=== PATIENT | female | born 1990 | race African-American/Black ===

== ENCOUNTER 2017-08-28 14:32 | Observation (INO) ==
[2017-08-28] MEDS ORDERED: Sod Chloride 0.9% Inj 1,000 ML IV.SIG ONE (19:48)
--- NOTE | 2017-08-28 19:56 | ED ---
HPI General Chief complaint: Recheck/Abnormal Lab/Rx Stated complaint: High blood sugar Time Seen by Provider: 08/28/17 19:36 History of Present Illness HPI narrative: This is a 27-year-old who is 12 weeks estimated gestational age. She has a history of insulin-dependent diabetes. She was sent here by her MUSICAL INSTRUMENT MAKER OR REPAIRER for evaluation of elevated blood sugar. She reports that she had a routine appointment today with Dr. Babin at [facility]. He told her to come here to be admitted for valuation of high blood sugar. She reports that she is currently on a 40 units regular insulin before meals regimen which she has been on for the past few years. She reports that typically in the mornings since she has been her blood sugars been running 200s fasting and after meals it is been in the 300s. Prior to her blood sugar was typically in the high 100s fasting and in the mid 200s after meals. She reports that she moved here from [place] 1.5 years ago and is in the process of getting an appointment with an handkerchief cutter, she has her first appointment in 1 week. She is currently asymptomatic. Denies any blurred vision, headache, polyuria, polydipsia, polyphagia, nausea or vomiting, abdominal pain. Related Data Home Medications Medication Instructions Recorded Confirmed insulin NPH and regular human 40 unit SUB-Q TID 08/28/17 08/28/17 Allergies Allergy/AdvReac Type Severity Reaction Status Date / Time No Known Allergies Allergy Uncoded 03/20/16 13:12 Review of Systems Except as stated in HPI: all other systems reviewed are negative PMFSH Medical History Medical History Diabetes (Acute) Social History Social History Substance History: No History of Abuse Second Hand Smoke Exposure: No Smoking Status: Never smoker How Often Do You Have a Drink Containing Alcohol: Never Recent Travel in [facility] within the Last 8 Weeks: No Recent Out of Country Travel within the Last 8 Weeks: No Exam Narrative Exam Narrative: GENERAL: Pleasant well-developed well-nourished female in no acute distress SKIN: Warm and dry. HEAD: Atraumatic. Normocephalic. EYES: Pupils equal and round. No scleral icterus. No injection or drainage. ENT: No nasal bleeding or discharge. Mucous membranes pink and moist. NECK: Trachea midline. No JVD. CARDIOVASCULAR: Regular rate and rhythm. No murmur appreciated. RESPIRATORY: No accessory muscle use. Clear to auscultation. Breath sounds equal bilaterally. GASTROINTESTINAL: Abdomen soft, non-tender, nondistended. Hepatic and splenic margins not palpable. MUSCULOSKELETAL: No obvious deformities. No clubbing. No cyanosis. No edema. NEUROLOGICAL: Awake and alert. No obvious cranial nerve deficits. Motor grossly within normal limits. Normal speech. Course Initial Documented Vital Signs Pulse Rate 98 H 08/28/17 20:16 Respiratory Rate 18 08/28/17 20:16 Blood Pressure 130/68 08/28/17 20:16 Pulse Oximetry 99 08/28/17 20:16 Last Documented Vital Signs Pulse Rate 98 H 08/28/17 20:16 Respiratory Rate 18 08/28/17 20:16 Blood Pressure 130/68 08/28/17 20:16 Pulse Oximetry 99 08/28/17 20:16 Medical Decision Making MDM Narrative Medical decision making narrative: This is a 27-year-old female with history of diabetes who presents after being sent by her MUSICAL INSTRUMENT MAKER OR REPAIRER for hyperglycemia. Lab work was obtained revealing a blood sugar of 286, otherwise unremarkable, the patient is not in DKA. I discussed with the on-call MUSICAL INSTRUMENT MAKER OR REPAIRER Dr. Aleman who wants the patient admitted to the hospitalist service for management of her diabetes. She will be admitted. Differential Diagnosis Differential Diagnosis: Hyperglycemia, gestational diabetes, insulin-dependent diabetes, DKA, electrolyte abnormality Lab Data Result diagrams: 08/28/17 20:20 08/28/17 20:20 Lab Results 08/28/17 08/28/17 08/28/17 Range/Units 20:20 20:20 21:42 WBC 8.3 (4.0-11.0) th/mm3 RBC 4.39 (4.00-5.30) mil/mm3 Hgb 12.5 (11.6-15.3) gm/dL Hct 38.0 (35.0-46.0) % MCV 86.5 (80.0-100.0) fL MCH 28.5 (27.0-34.0) pg MCHC 33.0 (32.0-36.0) % RDW 13.4 (11.6-17.2) % Plt Count 273 (150-450) th/mm3 MPV 8.2 (7.0-11.0) fL Neut % (Auto) 63.5 (16.0-70.0) % Lymph % (Auto) 28.6 (9.0-44.0) % Lucas % (Auto) 6.4 (0.0-8.0) % Eos % (Auto) 1.2 (0.0-4.0) % Baso % (Auto) 0.3 (0.0-2.0) % Neut # (Auto) 5.3 (1.8-7.7) th/mm3 Lymph # (Auto) 2.4 (1.0-4.8) th/mm3 Lucas # (Auto) 0.5 (0.0-0.9) th/mm3 Eos # (Auto) 0.1 (0.0-0.4) th/mm3 Baso # (Auto) 0.0 (0.0-0.2) th/mm3 WBC Differential . Differential Comment Auto diff final Sodium 134 L (136-145) meq/L Potassium 3.9 (3.5-5.1) meq/L Chloride 99 (98-107) meq/L Carbon Dioxide 24.5 (21.0-32.0) meq/L Anion Gap 11 (5-15) meq/L BUN 9 (7-18) mg/dL Creatinine 0.55 (0.50-1.00) mg/dL Estimated GFR Greater than 89 (>89) mL/min POC Glucose 218 H (68-110) mg/dl Random Glucose 286 H (74-106) mg/dL Calcium 9.0 (8.5-10.1) mg/dL Total Bilirubin 0.3 (0.2-1.0) mg/dL AST 18 (15-37) U/L ALT 25 (10-53) U/L Alkaline Phosphatase 43 L (45-117) U/L Total Protein 6.7 (6.4-8.2) g/dL Albumin 2.7 L (3.4-5.0) g/dL Beta-Hydroxybutyric Acd 0.12 (0.00-0.39) mmol/L Discharge Plan Discharge Disposition Patient Disposition: 30 Still Patient Discharge Details Diagnosis: Gestational hyperglycemia Physicians Team ED Provider: Alfredo Cardozo ED Midlevel Provider: Edgar Jha Primary Care Provider: Primary Care Stefani Soriano Attending Provider: Melanie Liao Discharge Interventions Interventions: Vital Signs Last Done: 08/28/17 20:16 Status ED Status: Admitted Observation Patient
[2017-08-28 20:37] LABS: Baso % (Auto) 0.3 % (0.0-2.0); Eos # (Auto) 0.1 th/mm3 (0.0-0.4); Eos % (Auto) 1.2 % (0.0-4.0); Hemoglobin 12.5 gm/dL (11.6-15.3); Lymph # (Auto) 2.4 th/mm3 (1.0-4.8); Lymph % (Auto) 28.6 % (9.0-44.0); Mean Corpuscular Hemoglobin 28.5 pg (27.0-34.0); Mean Corpuscular Volume 86.5 fL (80.0-100.0); Mean Platelet Volume 8.2 fL (7.0-11.0); Mono # (Auto) 0.5 th/mm3 (0.0-0.9); Mono % (Auto) 6.4 % (0.0-8.0); Neut # (Auto) 5.3 th/mm3 (1.8-7.7); Neut % (Auto) 63.5 % (16.0-70.0); Platelet Count 273 th/mm3 (150-450); Red Blood Count 4.39 mil/mm3 (4.00-5.30); Red Cell Distribution Width 13.4 % (11.6-17.2); White Blood Count 8.3 th/mm3 (4.0-11.0)
[2017-08-28 20:50] LABS: Albumin 2.7 g/dL (3.4-5.0); Anion Gap 11 meq/L (5-15); Aspartate Aminotransferase 18 U/L (15-37); Blood Urea Nitrogen 9 mg/dL (7-18); Carbon Dioxide 24.5 meq/L (21.0-32.0); Chloride 99 meq/L (98-107); Glomerular Filtration Rate Greater Than 89 mL/min (>89); Glucose,Random 286 mg/dL (74-106); Potassium 3.9 meq/L (3.5-5.1); Sodium 134 meq/L (136-145)
[2017-08-28 20:51] LABS: Alanine Aminotransferase 25 U/L (10-53)
[2017-08-28 20:53] LABS: Alkaline Phosphatase 43 U/L (45-117); Beta Hydroxybutyric Acid 0.12 mmol/L (0.00-0.39); Total Protein 6.7 g/dL (6.4-8.2)
[2017-08-28 22:59] LABS: Bacteria,Urine Occasional /hpf; Bilirubin,Urine Negative (Negative); Clarity,Urine Cloudy (Clear); Color,Urine Yellow (Yellw/Straw); Glucose,Urine (UA) 500 or Greater mg/dL (Negative); Leukocyte Esterase,Urine Trace (Negative); Mucus,Urine Few /lpf (Occasional); Nitrite,Urine Negative (Negative); Specific Gravity,Urine 1.028 (1.002-1.035); Squamous Epithelial Cell,Urine 16 /hpf (0-5)
[2017-08-28] MEDS ORDERED: Dextrose 50% in Water 50 ML Vial IV.PUSH PRN (23:21)
[2017-08-28] MEDS ORDERED: Bisacodyl 10 MG Supp RECTAL PRN (23:22)
--- NOTE | 2017-08-28 23:24 | P.HPIM ---
History of Present Illness Primary Care Physician: No Primary Care Physician History of Present Illness: This is a 27-year-old female with a PMH of DM who is currently 12 weeks who was referred to the ER by her RESTUARANT CREW WORKER, Dr. Aponte for admission due to uncontrolled BS. Pt currently without complaints. States she was diagnosed w/ DM as a child, was previously on long-acting insulin and had well- controlled BS until few years ago when she was switched to Regular Insulin 40u tid. States BS has been uncontrolled since then. Denies abdominal pain, nausea , vomiting or fever. On arrival, BP 130/68, HR 98, O2 sat 99% on RA, Afebrile. CBC unremarkable. Chemistry unremarkable except for BS 286. UA positive for UTI. S/p Regular Insulin 10u in ER. Dr. Aleman consulted, recommended pt be admitted for tight glucose control. Per patient she has upcoming appointment next w/ Typewriter Ribbon Winder. - Diagnosis (1) (2) DM (diabetes mellitus) (3) UTI (urinary tract infection) Review of Systems All other systems reviewed negative except as stated in HPI PMFSH - History History Provided By: Patient - Medical History Medical History: Medical History (Last Updated 08/28/17 @ 20:17 by Emperatriz Stewart) Diabetes - Tobacco History Second Hand Smoke Exposure: No Smoking Status: Never smoker - Alcohol History How Often Do You Have a Drink Containing Alcohol: Never - Substance Use History Substance History: No History of Abuse - Travel History Recent Travel in the [place] Within the Last 8 Weeks: No Recent Travel Out of the Country Within the Last 8 Weeks: No - Immunization History Tetanus Immunization: Unsure Hx Influenza Vaccine This Season: No Medications and Allergies Allergies Allergy/AdvReac Type Severity Reaction Status Date / Time No Known Allergies Allergy Uncoded 03/20/16 13:12 Home Medications Medication Instructions Recorded Confirmed Type insulin NPH and regular human 40 unit SUB-Q TID 08/28/17 08/28/17 History Exam Vital signs: Vital Signs 08/28/17 20:16 08/28/17 22:17 Pulse Rate 98 H 100 H Respiratory Rate 18 18 Blood Pressure 130/68 127/58 L Pulse Oximetry 99 100 Intake & Output 08/28/17 08/28/17 08/29/17 06:59 18:59 06:59 Weight 106.594 kg Narrative: PE: GENERAL: Very pleasant young black female in no acute distress. HEENT: PERRLA, EOMI. No scleral icterus or conjunctival pallor. No lid lag or facial droop. CARDIOVASCULAR: Regular rate and rhythm. No obvious murmurs to auscultation. No chest tenderness to palpation. RESPIRATORY: No obvious rhonchi or wheezing. Clear to auscultation. Breath sounds equal bilaterally. GASTROINTESTINAL: Abdomen soft, non-tender, nondistended. BS normal. MUSCULOSKELETAL: Extremities without clubbing, cyanosis, or edema. No obvious deformities. NEUROLOGICAL: Awake, alert and oriented x4. No focal neurologic deficits. Moving both upper and lower extremities spontaneously. Results - Labs CBC & Chem 7: 08/28/17 20:20 08/28/17 20:20 Labs: Short CBC 08/28/17 Range/Units 20:20 WBC 8.3 (4.0-11.0) th/mm3 Hgb 12.5 (11.6-15.3) gm/dL Hct 38.0 (35.0-46.0) % Plt Count 273 (150-450) th/mm3 BMP 08/28/17 20:20 Sodium 134 L Potassium 3.9 Chloride 99 Carbon Dioxide 24.5 BUN 9 Creatinine 0.55 Calcium 9.0 Liver Function 08/28/17 Range/Units 20:20 Total Bilirubin 0.3 (0.2-1.0) mg/dL AST 18 (15-37) U/L ALT 25 (10-53) U/L Alkaline Phosphatase 43 L (45-117) U/L Albumin 2.7 L (3.4-5.0) g/dL Urine 08/28/17 Range/Units 22:12 Urine Color Yellow (Yellw/Straw) Urine Clarity Cloudy H (Clear) Urine pH 6.0 (5.0-8.5) Ur Specific [place] 1.028 (1.002-1.035) Urine Protein Negative (Neg-Trace) mg/dL Urine Glucose (UA) 500 or greater (Negative) mg/dL Caprini VTE Risk Assessment Caprini VTE Risk Assessment: No/Low Risk (score <= 1) Caprini Risk Assessment Model: Point Value = 1 Point Value = 2 Point Value = 3 Point Value = 5 Age 41-60 Minor surgery BMI > 25 kg/m2 Swollen legs Varicose veins or History of unexplained or recurrent spontaneous Oral contraceptives or hormone replacement Sepsis (< 1 month) Serious lung disease, including pneumonia (< 1 month) Abnormal pulmonary function Acute myocardial infarction Congestive heart failure (< 1 month) History of inflammatory bowel disease Medical patient at bed rest Age 61-74 Arthroscopic surgery Major open surgery (> 45 min) Laparoscopic surgery (> 45 min) Malignancy Confined to bed (> 72 hours) Immobilizing plaster cast Central venous access Age >= 75 History of VTE Family history of VTE Factor V Leiden Prothrombin [id number] Lupus anticoagulant Anticardiolipin antibodies Elevated serum homocysteine Heparin-induced thrombocytopenia Other congenital or acquired thrombophilia Stroke (< 1 month) Elective arthroplasty Hip, pelvis, or leg fracture Acute spinal cord injury (< 1 month) Prophylaxis Regimen: Total Risk Factor Score Risk Level Prophylaxis Regimen 0-1 Low Early ambulation 2 Moderate Order ONE of the following: *Sequential Compression Device (SCD) *Heparin 5000 units SQ BID 3-4 Higher Order ONE of the following medications: *Heparin 5000 units SQ TID *Enoxaparin/Lovenox 40 mg SQ daily (WT < 150 kg, CrCl > 30 mL/min) *Enoxaparin/Lovenox 30 mg SQ daily (WT < 150 kg, CrCl > 10-29 mL/min) *Enoxaparin/Lovenox 30 mg SQ BID (WT < 150 kg, CrCl > 30 mL/min) AND/OR *Sequential Compression Device (SCD) 5 or more Highest Order ONE of the following medications: *Heparin 5000 units SQ TID (Preferred with Epidurals) *Enoxaparin/Lovenox 40 mg SQ daily (WT < 150 kg, CrCl > 30 mL/min) *Enoxaparin/Lovenox 30 mg SQ daily (WT < 150 kg, CrCl > 10-29 mL/min) *Enoxaparin/Lovenox 30 mg SQ BID (WT < 150 kg, CrCl > 30 mL/min) AND *Sequential Compression Device (SCD) Assessment and Plan - Assessment (1) Code(s): Z34.90 - Encounter for supervision of normal , unspecified, unspecified trimester Status: Acute (2) DM (diabetes mellitus) Code(s): E11.9 - Type 2 diabetes mellitus without complications Status: Acute (3) UTI (urinary tract infection) Code(s): N39.0 - Urinary tract infection, site not specified Status: Acute - Plan A/P: 1. : 12wks gestation, following w/ Dr. Aponte as outpatient, Dr. Aleman consulted, will follow during hospitalization. 2. DM: Uncontrolled. BS 240's, states BS usually 200-300's despite compliance w/ medications. Encapsulator referred pt for admission due to uncontrolled BS, I spoke w/ Dr. Aleman to inquire about goals for glucose levels, recommends fasting BS 100's and non-fasting 120-150. Will check Hgb A1c, start Levemir 10u hs and Sliding scale. Follow up w/ Typewriter Ribbon Winder as scheduled next . 3. UTI: U/a w/ UTI, likely exacerbating hyperglycemia, start IV Rocephin, IVF for hydration, monitor I/O. 4. DVT Prophylaxis: SCD/Teds 5. Social work for d/c planning as needed. 6. Case discussed w/ ER physician at length, labs/records/imaging reviewed by me.
[2017-08-28] MEDS ORDERED: Insulin Detemir Inj 1,000 UNIT/10 ML Vial SQ SCH (23:30)
[2017-08-28] MEDS: Sod Chloride 0.9% Inj 1,000 ML IV.CONT SCH (23:59)
[2017-08-29] MEDS: Sod Chloride 0.9% Inj 1,000 ML IV.CONT SCH ×3 (07:41→19:44)
[2017-08-29] MEDS ORDERED: Insulin NovoLOG Aspart Correctional Sugar Inj SQ SCH (08:00)
[2017-08-29] MEDS: Senna/Docusate Sodium 8.6/50 MG Tablet PO SCH ×2 (08:48→21:06)
--- NOTE | 2017-08-29 10:21 | P.CONOB ---
History of Present Illness Primary Care Physician: No Primary Care Physician Chief Complaint: hyperglycemia in History of Present Illness: Ms. Almanzar is a 27-year-old at 12 weeks gestation with PMHx of DM and followed by Dr. Aponte at [facility] who presents to [facility] with uncontrolled blood sugar and UTI. The OB hospitalist has been consulted to help provide recommendations for blood sugar management prior to patient establishing with visual merchandising associate next week. There has been no vaginal bleeding, loss of fluid, and patient does not complain of dysuria. Patient's home regimen is 40 units of regular insulin 3 times daily. Overnight her blood sugar has been elevated to 286. Patient's first delivered by due to preeclampsia. Patient states she has had intermittent migraines during this but not today. Patient states she got OB ultrasound last week ordered by Dr. Aponte' s office. Patient smoked prior to , drinks no alcohol, and denies other drugs. He takes calcium and started a vitamin early in but no longer takes that. She denies any allergies. Patient states she has been nauseous in the morning during this . Patient denies chest pains, vomiting, diarrhea, fever, chills, and DVT leg pain. Patient also states she has exertional shortness of breath. Weeks Gestation:: 12 Para: 1 (child is 9 years old) : 2 Review of Systems Constitutional: Denies chills, Denies fever(s), Denies weakness Eyes: Denies change in vision Cardiovascular: Reports shortness of breath with activity, Denies chest pain, Denies shortness of breath Respiratory: Reports shortness of breath with activity, Denies shortness of breath Gastrointestinal: Reports nausea, Denies abdominal pain, Denies cramping, Denies loose stools, Denies vomiting Genitourinary: Denies abnormal vaginal bleeding, Denies painful urination, Denies pelvic pain, Denies vaginal discharge Musculoskeletal: Reports other (some LE edema), Denies back pain Skin/Breast: Denies lesions, Denies rash Neurologic: Reports headache(s) (infrequent), Denies dizziness, Denies other visual disturbances PMFSH - History History Provided By: Patient - Medical History Medical History: Medical History (Last Updated 08/29/17 @ 10:09 by Jaspreet Nunes III, MD, R2) delivery delivered Diabetes - Surgical History Surgical History: Surgical History (Last Updated 08/29/17 @ 10:09 by Jaspreet Nunes III, MD, R2) H/O oral surgery - Family History Family History: Family History (Last Updated 08/29/17 @ 10:10 by Jaspreet Nunes III, MD, R2) Mother Diabetes Father Diabetes Mother Hypertension Father Hypertension - Tobacco History Second Hand Smoke Exposure: No Tobacco Use In Past 30 Days: No Smoking Status: Former smoker (stopped when she became ) - Alcohol History How Often Do You Have a Drink Containing Alcohol: Never - Substance Use History Substance History: No History of Abuse - Travel History Recent Travel in the [place] Within the Last 8 Weeks: No Recent Travel Out of the Country Within the Last 8 Weeks: No - Immunization History Tetanus Immunization: Unsure Hx Influenza Vaccine This Season: No Medications and Allergies Active Medications: Active Medications Acetaminophen (Tylenol) 650 mg PO Q4H PRN PRN Reason: Temp > 100.4 Al Hydroxide/Mg Hydroxide (Milk Of Magnesia Liq) 30 ml PO Q12H PRN PRN Reason: Mild Constipation Bisacodyl (Dulcolax Supp) 10 mg RECTAL DAILY PRN PRN Reason: SEVERE CONSITIPATION Dextrose (D50w Vial) 50 ml IV.PUSH UNSCH PRN PRN Reason: PER HYPOGLYCEMIA PROTOCOL Glucagon (Glucagon Inj) 1 mg OTHER PRN PRN PRN Reason: for Hypoglycemia Protocol Sodium Chloride (Ns Inj) 1,000 mls @ 100 mls/hr IV.CONT .Q10H [facility] Last Admin: 08/29/17 08:34 Dose: Not Given Ceftriaxone Sodium 1,000 mg/ (Sodium Chloride) 100 mls @ 200 mls/hr IV.SIG Q24H [facility] Last Infusion: 08/29/17 01:50 Dose: Infused Insulin Aspart (Novolog Insulin Correctional Sugar Inj) 0 unit SQ ACHS [facility]; Protocol Last Admin: 08/29/17 09:55 Dose: 100 unit Insulin Detemir (Levemir Inj) 10 unit SQ HS [facility] Last Admin: 08/29/17 00:01 Dose: 10 unit Lactulose (Lactulose Liq) 30 ml PO DAILY PRN PRN Reason: SEVERE CONSITIPATION Ondansetron HCl (Zofran Odt) 4 mg PO Q6H PRN PRN Reason: NAUSEA OR VOMITING Senna/Docusate Sodium (Sugar-Colace) 1 tab PO BID [facility] Last Admin: 08/29/17 08:48 Dose: Not Given Sennosides (Senokot) 17.2 mg PO Q12H PRN PRN Reason: Moderate Constipation Allergies Allergy/AdvReac Type Severity Reaction Status Date / Time No Known Allergies Allergy Uncoded 03/20/16 13:12 Home Medications Medication Instructions Recorded Confirmed Type insulin NPH and regular human 40 unit SUB-Q TID 08/28/17 08/28/17 History Exam Vital signs: Vital Signs 08/28/17 20:16 08/28/17 22:17 08/29/17 00:00 Temperature 98.5 F Pulse Rate 98 H 100 H 105 H Respiratory Rate 18 18 22 Blood Pressure 130/68 127/58 L 141/61 H Pulse Oximetry 99 100 97 08/29/17 04:00 08/29/17 07:30 Temperature 98.1 F 98.4 F Pulse Rate 104 H 99 H Respiratory Rate 20 20 Blood Pressure 141/76 H 130/64 Pulse Oximetry 99 98 Intake & Output 08/28/17 08/29/17 08/29/17 18:59 06:59 18:59 Intake Total 1580 / 1580 1000 / 1000 Balance 1580 / 1580 1000 / 1000 Weight 106.594 kg 106.594 kg Intake: IV 1100 / 1100 1000 / 1000 NS Inj 1,000 ML @ 100 mls/hr IV 1000 / 1000 .CONT .Q10H [facility] Rx#:[id number] NS Inj 1,000 ML @ Wide Open IV. 1000 / 1000 SIG BOLUS ONE Rx#:[id number] Rocephin Inj 1,000 MG In NS Inj 100 / 100 100 ML @ 200 mls/hr IV.SIG Q24H [facility] Rx#:[id number] Oral 480 / 480 Other: # Voids 1 Weight On Admission 106.56 kg Narrative: GENERAL: Obese, well-developed patient in NAD. SKIN: Warm and dry. No rashes or lesions. HEAD: Normocephalic and atraumatic. EYES: No scleral icterus. No injection or drainage. ENT: No nasal drainage noted. Mucous membranes pink. Airway patent. NECK: Supple, trachea midline. No JVD. CARDIOVASCULAR: Regular rate and rhythm without murmurs, gallops, or rubs. RESPIRATORY: Breath sounds equal bilaterally. No accessory muscle use. ABDOMEN/GI: Abdomen soft, gravid, non-tender, bowel sounds present, no rebound, no guarding EXTREMITIES: No cyanosis. Trace LE edema on dorsal feet. BACK: Nontender without obvious deformity. No CVA tenderness. NEUROLOGICAL: Awake and alert. Motor and sensory grossly within normal limits. Five out of 5 muscle strength in all muscle groups. Normal speech. Results - Labs CBC & Chem 7: 08/28/17 20:20 08/28/17 20:20 Labs: Laboratory Results - last 24 hr 08/28/17 08/28/17 08/28/17 20:20 20:20 21:42 WBC 8.3 RBC 4.39 Hgb 12.5 Hct 38.0 MCV 86.5 MCH 28.5 MCHC 33.0 RDW 13.4 Plt Count 273 MPV 8.2 Neut % (Auto) 63.5 Lymph % (Auto) 28.6 [place] % (Auto) 6.4 Eos % (Auto) 1.2 Baso % (Auto) 0.3 Neut # (Auto) 5.3 Lymph # (Auto) 2.4 [place] # (Auto) 0.5 Eos # (Auto) 0.1 Baso # (Auto) 0.0 WBC Differential . Differential Comment Auto diff final Sodium 134 L Potassium 3.9 Chloride 99 Carbon Dioxide 24.5 Anion Gap 11 BUN 9 Creatinine 0.55 Estimated GFR Greater than 89 POC Glucose 218 H Random Glucose 286 H Calcium 9.0 Total Bilirubin 0.3 AST 18 ALT 25 Alkaline Phosphatase 43 L Total Protein 6.7 Albumin 2.7 L Beta-Hydroxybutyric Acd 0.12 Urine Color Urine Clarity Urine pH Ur Specific [place] Urine Protein Urine Glucose (UA) Urine Ketones Urine Occult Blood Urine Nitrate Urine Bilirubin Urine Urobilinogen Ur Leukocyte Esterase Urine RBC Urine WBC Ur Squamous Epith Cells Urine Bacteria Urine Mucus Micro UA Comment Urine Culture Comments 08/28/17 08/29/17 22:12 08:44 WBC RBC Hgb Hct MCV MCH MCHC RDW Plt Count MPV Neut % (Auto) Lymph % (Auto) [place] % (Auto) Eos % (Auto) Baso % (Auto) Neut # (Auto) Lymph # (Auto) [place] # (Auto) Eos # (Auto) Baso # (Auto) WBC Differential Differential Comment Sodium Potassium Chloride Carbon Dioxide Anion Gap BUN Creatinine Estimated GFR POC Glucose 260 H Random Glucose Calcium Total Bilirubin AST ALT Alkaline Phosphatase Total Protein Albumin Beta-Hydroxybutyric Acd Urine Color Yellow Urine Clarity Cloudy H Urine pH 6.0 Ur Specific [place] 1.028 Urine Protein Negative Urine Glucose (UA) 500 or greater Urine Ketones Negative Urine Occult Blood Small H Urine Nitrate Negative Urine Bilirubin Negative Urine Urobilinogen 2.0 H Ur Leukocyte Esterase Trace H Urine RBC 5 H Urine WBC 9 H Ur Squamous Epith Cells 16 Urine Bacteria Occasional H Urine Mucus Few H Micro UA Comment Culture indicated Urine Culture Comments Culture indicated Caprini VTE Risk Assessment Caprini VTE Risk Assessment: No/Low Risk (score <= 1) Caprini Risk Assessment Model: Point Value = 1 Point Value = 2 Point Value = 3 Point Value = 5 Age 41-60 Minor surgery BMI > 25 kg/m2 Swollen legs Varicose veins or History of unexplained or recurrent spontaneous Oral contraceptives or hormone replacement Sepsis (< 1 month) Serious lung disease, including pneumonia (< 1 month) Abnormal pulmonary function Acute myocardial infarction Congestive heart failure (< 1 month) History of inflammatory bowel disease Medical patient at bed rest Age 61-74 Arthroscopic surgery Major open surgery (> 45 min) Laparoscopic surgery (> 45 min) Malignancy Confined to bed (> 72 hours) Immobilizing plaster cast Central venous access Age >= 75 History of VTE Family history of VTE Factor V Leiden Prothrombin [id number] Lupus anticoagulant Anticardiolipin antibodies Elevated serum homocysteine Heparin-induced thrombocytopenia Other congenital or acquired thrombophilia Stroke (< 1 month) Elective arthroplasty Hip, pelvis, or leg fracture Acute spinal cord injury (< 1 month) Prophylaxis Regimen: Total Risk Factor Score Risk Level Prophylaxis Regimen 0-1 Low Early ambulation 2 Moderate Order ONE of the following: *Sequential Compression Device (SCD) *Heparin 5000 units SQ BID 3-4 Higher Order ONE of the following medications: *Heparin 5000 units SQ TID *Enoxaparin/Lovenox 40 mg SQ daily (WT < 150 kg, CrCl > 30 mL/min) *Enoxaparin/Lovenox 30 mg SQ daily (WT < 150 kg, CrCl > 10-29 mL/min) *Enoxaparin/Lovenox 30 mg SQ BID (WT < 150 kg, CrCl > 30 mL/min) AND/OR *Sequential Compression Device (SCD) 5 or more Highest Order ONE of the following medications: *Heparin 5000 units SQ TID (Preferred with Epidurals) *Enoxaparin/Lovenox 40 mg SQ daily (WT < 150 kg, CrCl > 30 mL/min) *Enoxaparin/Lovenox 30 mg SQ daily (WT < 150 kg, CrCl > 10-29 mL/min) *Enoxaparin/Lovenox 30 mg SQ BID (WT < 150 kg, CrCl > 30 mL/min) AND *Sequential Compression Device (SCD) Assessment and Plan - Plan 27 YO female at 12 weeks gestation with chronic DM and Hx pre-eclampsia delivered via C/S presents with uncontrolled blood sugar at 286 overnight. Pt's home regimen is regular insulin 40 units TID. PLAN: -Must quickly control blood sugars with goals of FBS <100 and post-prandial BS < 140 -OB US <14 weeks ordered to assess fetus -F/u with visual merchandising associate next week as planned Dispo: FIELD REP signing off JANNIE Aleman
[2017-08-29] MEDS ORDERED: Dextrose 50% in Water 50 ML Vial IV.PUSH PRN (10:26)
[2017-08-29] MEDS: Insulin Detemir Inj 1,000 UNIT/10 ML Vial SQ SCH ×2 (11:17→21:08)
--- NOTE | 2017-08-29 13:36 | P.PNIM ---
Subjective Interval history: Patient says she is feeling well. Denies any chest pain, shortness breath, nausea, vomiting, diarrhea, constipation. Physical Exam Vital signs: Vital Signs 08/28/17 20:16 08/28/17 22:17 08/29/17 00:00 Temperature 98.5 F Pulse Rate 98 H 100 H 105 H Respiratory Rate 18 Blood Pressure 130/68 127/58 L 141/61 H Pulse Oximetry 99 100 97 08/29/17 04:00 08/29/17 07:30 08/29/17 12:00 Temperature 98.1 F 98.4 F 98.9 F Pulse Rate 104 H 99 H 105 H Respiratory Rate 16 Blood Pressure 141/76 H 130/64 164/74 H Pulse Oximetry 99 98 96 Intake & Output 08/28/17 08/29/17 08/29/17 18:59 06:59 18:59 Intake Total 1580 / 1580 1120 / 1120 Balance 1580 / 1580 1120 / 1120 Weight 106.594 kg 106.594 kg Intake: IV 1100 / 1100 1000 / 1000 NS Inj 1,000 ML @ 100 mls/hr IV 1000 / 1000 .CONT .Q10H B[facility]AL Rx#:[id number] NS Inj 1,000 ML @ Wide Open IV. 1000 / 1000 SIG BOLUS ONE Rx#:[id number] Rocephin Inj 1,000 MG In NS Inj 100 / 100 100 ML @ 200 mls/hr IV.SIG Q24H [facility] Rx#:[id number] Oral 480 / 480 120 / 120 Other: # Voids 1 1 Date of Last Bowel Movement 08/29/17 Weight On Admission 106.56 kg Narrative: GENERAL: Patient sitting up in bed. Appears comfortable. SKIN: Warm and dry. HEAD: Normocephalic. EYES: No scleral icterus. No injection or drainage. NECK: Supple, trachea midline. No JVD or lymphadenopathy. CARDIOVASCULAR: Regular rate and rhythm without murmurs, gallops, or rubs. RESPIRATORY: Breath sounds equal bilaterally. No accessory muscle use. GASTROINTESTINAL: Abdomen soft, non-tender, nondistended. MUSCULOSKELETAL: No cyanosis, or edema. BACK: Nontender without obvious deformity. No CVA tenderness. Results - Labs CBC & Chem 7: 08/28/17 20:20 08/28/17 20:20 Laboratory Results - last 24 hr 08/28/17 08/28/17 08/28/17 20:20 20:20 21:42 WBC 8.3 RBC 4.39 Hgb 12.5 Hct 38.0 MCV 86.5 MCH 28.5 MCHC 33.0 RDW 13.4 Plt Count 273 MPV 8.2 Neut % (Auto) 63.5 Lymph % (Auto) 28.6 Ritchie % (Auto) 6.4 Eos % (Auto) 1.2 Baso % (Auto) 0.3 Neut # (Auto) 5.3 Lymph # (Auto) 2.4 Ritchie # (Auto) 0.5 Eos # (Auto) 0.1 Baso # (Auto) 0.0 WBC Differential . Differential Comment Auto diff final Sodium 134 L Potassium 3.9 Chloride 99 Carbon Dioxide 24.5 Anion Gap 11 BUN 9 Creatinine 0.55 Estimated GFR Greater than 89 POC Glucose 218 H Random Glucose 286 H Calcium 9.0 Total Bilirubin 0.3 AST 18 ALT 25 Alkaline Phosphatase 43 L Total Protein 6.7 Albumin 2.7 L Beta-Hydroxybutyric Acd 0.12 Urine Color Urine Clarity Urine pH Ur Specific [place] Urine Protein Urine Glucose (UA) Urine Ketones Urine Occult Blood Urine Nitrate Urine Bilirubin Urine Urobilinogen Ur Leukocyte Esterase Urine RBC Urine WBC Ur Squamous Epith Cells Urine Bacteria Urine Mucus Micro UA Comment Urine Culture Comments 08/28/17 08/29/17 08/29/17 22:12 08:44 12:58 WBC RBC Hgb Hct MCV MCH MCHC RDW Plt Count MPV Neut % (Auto) Lymph % (Auto) Ritchie % (Auto) Eos % (Auto) Baso % (Auto) Neut # (Auto) Lymph # (Auto) Ritchie # (Auto) Eos # (Auto) Baso # (Auto) WBC Differential Differential Comment Sodium Potassium Chloride Carbon Dioxide Anion Gap BUN Creatinine Estimated GFR POC Glucose 260 H 284 H Random Glucose Calcium Total Bilirubin AST ALT Alkaline Phosphatase Total Protein Albumin Beta-Hydroxybutyric Acd Urine Color Yellow Urine Clarity Cloudy H Urine pH 6.0 Ur Specific [place] 1.028 Urine Protein Negative Urine Glucose (UA) 500 or greater Urine Ketones Negative Urine Occult Blood Small H Urine Nitrate Negative Urine Bilirubin Negative Urine Urobilinogen 2.0 H Ur Leukocyte Esterase Trace H Urine RBC 5 H Urine WBC 9 H Ur Squamous Epith Cells 16 Urine Bacteria Occasional H Urine Mucus Few H Micro UA Comment Culture indicated Urine Culture Comments Culture indicated Microbiology 08/28/17 22:12 Clean Catch Urine Urine Culture - Preliminary No growth in 24 hours Assessment and Plan - Assessment (1) Code(s): Z34.90 - Encounter for supervision of normal , unspecified, unspecified trimester Status: Acute (2) DM (diabetes mellitus) Code(s): E11.9 - Type 2 diabetes mellitus without complications Status: Acute (3) UTI (urinary tract infection) Code(s): N39.0 - Urinary tract infection, site not specified Status: Acute - Plan // : 12wks gestation, following w/ Dr. Aponte as outpatient, Dr. Aleman consulted, will follow during hospitalization. = Appreciate gynecology assistance. // DM: Uncontrolled. BS 240's, states BS usually 200-300's despite compliance w/ medications. Thermal Cutter Hand referred pt for admission due to uncontrolled BS, I spoke w/ Dr. Aleman to inquire about goals for glucose levels, recommends fasting BS 100's and non-fasting 120-150. Will check Hgb A1c, start Levemir 10u hs and Sliding scale. Follow up w/ Military Aircraft Designer as scheduled next . = Patient on 40 of regular insulin 3 times a day at home. Increase his sliding scale. Add twice daily Levemir. Continue to monitor. Consult ski patroller. //UTI: U/a w/ UTI, likely exacerbating hyperglycemia, start IV Rocephin, IVF for hydration, monitor I/O. = Follow-up cultures. Discharge Planning: Discharge home tomorrow morning if sugars are stable.
[2017-08-29] MEDS: Insulin NovoLOG Aspart Correctional Sugar Inj SQ SCH ×3 (14:33→21:06)
[2017-08-29 17:15] LABS: Anion Gap 7 meq/L (5-15); Blood Urea Nitrogen 8 mg/dL (7-18); Calcium 8.8 mg/dL (8.5-10.1); Carbon Dioxide 26.3 meq/L (21.0-32.0); Chloride 104 meq/L (98-107); Glomerular Filtration Rate Greater Than 89 mL/min (>89); Glucose,Random 184 mg/dL (74-106); Potassium 3.7 meq/L (3.5-5.1); Sodium 137 meq/L (136-145)
[2017-08-30] MEDS: Sod Chloride 0.9% Inj 1,000 ML IV.CONT SCH ×3 (05:09→23:33)
[2017-08-30] MEDS: Insulin NovoLOG Aspart Correctional Sugar Inj SQ SCH ×4 (08:16→21:10)
[2017-08-30] MEDS: Insulin Detemir Inj 1,000 UNIT/10 ML Vial SQ SCH (08:16)
[2017-08-30] MEDS: Senna/Docusate Sodium 8.6/50 MG Tablet PO SCH ×2 (08:18→21:11)
[2017-08-30] MEDS ORDERED: Insulin Detemir Inj 1,000 UNIT/10 ML Vial SQ ONE (08:25)
[2017-08-30] MEDS ORDERED: Sodium Chlor 0.9% Inj 500 ML IV.SIG ONE (08:27)
--- NOTE | 2017-08-30 09:43 | P.PNIM ---
Subjective Interval history: All right. Denies any chest pain shortness of breath. She does report morning nausea which is typical for her. She has Ritz crackers at bedside which she has been taking to prevent her nausea. Physical Exam Vital signs: Vital Signs 08/29/17 12:00 08/29/17 16:00 08/30/17 00:00 Temperature 98.9 F 97.9 F 98.7 F Pulse Rate 105 H 110 H 106 H Respiratory Rate 16 18 16 Blood Pressure 164/74 H 141/73 H 164/77 H Pulse Oximetry 96 100 08/30/17 04:00 08/30/17 08:00 Temperature 98.7 F 98.1 F Pulse Rate 107 H 104 H Respiratory Rate 16 24 Blood Pressure 129/61 149/70 H Pulse Oximetry 95 99 Intake & Output 08/29/17 08/30/17 08/30/17 18:59 06:59 18:59 Intake Total 1120 / 1120 2100 / 2100 Balance 1120 / 1120 2100 / 2100 Intake: IV 1000 / 1000 2100 / 2100 NS Inj 1,000 ML @ 100 mls/hr IV 1000 / 1000 2000 / 2000 .CONT .Q10H [facility] Rx#:[id number] Rocephin Inj 1,000 MG In NS Inj 100 / 100 100 ML @ 200 mls/hr IV.SIG Q24H [facility] Rx#:[id number] Oral 120 / 120 Other: # Voids 5 1 Date of Last Bowel Movement 08/29/17 Narrative: GENERAL: Patient sitting up in bed. Appears comfortable. Alert and oriented 3. No change on exam. SKIN: Warm and dry. HEAD: Normocephalic. EYES: No scleral icterus. No injection or drainage. NECK: Supple, trachea midline. No JVD. CARDIOVASCULAR: Regular rate and rhythm without murmurs, gallops, or rubs. RESPIRATORY: Breath sounds equal bilaterally. No accessory muscle use. GASTROINTESTINAL: Abdomen soft, non-tender, nondistended. MUSCULOSKELETAL: No cyanosis, or edema. BACK: Nontender without obvious deformity. No CVA tenderness. Results - Labs CBC & Chem 7: 08/28/17 20:20 08/29/17 16:00 Laboratory Results - last 24 hr 08/29/17 08/29/17 08/29/17 12:58 16:00 18:09 Sodium 137 Potassium 3.7 Chloride 104 Carbon Dioxide 26.3 Anion Gap 7 BUN 8 Creatinine 0.83 Estimated GFR Greater than 89 POC Glucose 284 H 226 H Random Glucose 184 H D Calcium 8.8 08/29/17 08/30/17 20:55 08:15 Sodium Potassium Chloride Carbon Dioxide Anion Gap BUN Creatinine Estimated GFR POC Glucose 195 H 243 H Random Glucose Calcium Microbiology 08/28/17 22:12 Clean Catch Urine Urine Culture - Preliminary No growth in 24 hours Assessment and Plan - Assessment (1) Code(s): Z34.90 - Encounter for supervision of normal , unspecified, unspecified trimester Status: Acute (2) DM (diabetes mellitus) Code(s): E11.9 - Type 2 diabetes mellitus without complications Status: Acute (3) UTI (urinary tract infection) Code(s): N39.0 - Urinary tract infection, site not specified Status: Acute - Plan // : 12wks gestation, following w/ Dr. Aponte as outpatient, Dr. Aleman consulted, will follow during hospitalization. = Appreciate gynecology assistance -gynecology is signed off. They want fasting sugars under 100. // DM: Uncontrolled. BS 240's, states BS usually 200-300's despite compliance w/ medications. Steel Post Installer referred pt for admission due to uncontrolled BS, I spoke w/ Dr. Aleman to inquire about goals for glucose levels, recommends fasting BS 100's and non-fasting 120-150. Will check Hgb A1c, start Levemir 10u hs and Sliding scale. Follow up w/ Receiving Supervisor as scheduled next . = Patient on 40 of regular insulin 3 times a day at home. Increase his sliding scale. Add twice daily Levemir. Continue to monitor. Consult natural resources extension educator. = 08/30. Patient found to have Ritz crackers at bedside. Talked with patient about acceptable snacks and foods. Discussed with nurse. Nurse will provide with list of acceptable diabetic food and snacks. //UTI: U/a w/ UTI, likely exacerbating hyperglycemia, start IV Rocephin, IVF for hydration, monitor I/O. = No growth. Discontinue antibiotics. Squamous cells on urinalysis indicating this is a poor sample. Discharge Planning: Discharge home tomorrow morning if sugars are stable.
[2017-08-30 11:13] LABS: Anion Gap 9 meq/L (5-15); Blood Urea Nitrogen 8 mg/dL (7-18); Calcium 8.9 mg/dL (8.5-10.1); Carbon Dioxide 24.3 meq/L (21.0-32.0); Chloride 104 meq/L (98-107); Glomerular Filtration Rate Greater Than 89 mL/min (>89); Glucose,Random 219 mg/dL (74-106); Potassium 3.8 meq/L (3.5-5.1); Sodium 137 meq/L (136-145)
[2017-08-30] MEDS ORDERED: Insulin Detemir Inj 1,000 UNIT/10 ML Vial SQ SCH (21:00)
[2017-08-31] MEDS: Sod Chloride 0.9% Inj 1,000 ML IV.CONT SCH ×3 (07:23→21:01)
[2017-08-31] MEDS: Insulin Detemir Inj 1,000 UNIT/10 ML Vial SQ SCH ×2 (09:25→21:15)
[2017-08-31] MEDS: Insulin NovoLOG Aspart Correctional Sugar Inj SQ SCH ×6 (09:25→21:14)
[2017-08-31] MEDS: Senna/Docusate Sodium 8.6/50 MG Tablet PO SCH ×2 (09:25→21:00)
[2017-08-31] MEDS: Acetaminophen 325 MG Tablet PO PRN ×2 (09:30→18:05)
--- NOTE | 2017-08-31 13:02 | P.PNIM ---
Subjective Interval history: Patient sitting in bed. Appears comfortable. Says she is feeling all right. Denies any chest pain shortness of breath. Denies nausea vomiting. Further discussed with nurse and patient regarding appropriate snacks Physical Exam Vital signs: Vital Signs 08/30/17 15:35 08/30/17 19:37 08/30/17 23:07 Temperature 98.1 F 98.0 F 98.4 F Pulse Rate 104 H 101 H 97 H Respiratory Rate 18 Blood Pressure 151/72 H 148/70 H 144/69 H Pulse Oximetry 99 99 97 08/31/17 03:28 08/31/17 08:11 08/31/17 12:00 Temperature 98.0 F 99.6 F 98.2 F Pulse Rate 105 H 106 H 98 H Respiratory Rate 18 Blood Pressure 126/60 171/81 H 146/77 H Pulse Oximetry 97 97 99 Intake & Output 08/30/17 08/31/17 08/31/17 18:59 06:59 18:59 Intake Total 900 / 900 600 / 600 1300 / 1300 Balance 900 / 900 600 / 600 1300 / 1300 Intake: IV 900 / 900 600 / 600 1300 / 1300 NS Inj 1,000 ML @ 100 mls/hr IV 400 / 400 600 / 600 1300 / 1300 .CONT .Q10H [facility] Rx#:[id number] NS Inj 500 ML @ Wide Open IV. 500 / 500 SIG BOLUS ONE Rx#:[id number] Other: # Voids 2 Date of Last Bowel Movement 08/30/17 08/31/17 # Bowel Movements 1 Narrative: GENERAL: Patient sitting up in bed. Appears comfortable. Alert and oriented 3. No change on exam. SKIN: Warm and dry. HEAD: Normocephalic. EYES: No scleral icterus. No injection or drainage. NECK: Supple, trachea midline. No JVD. CARDIOVASCULAR: Regular rate and rhythm without murmurs, gallops, or rubs. RESPIRATORY: Breath sounds equal bilaterally. No accessory muscle use. GASTROINTESTINAL: Abdomen soft, non-tender, nondistended. MUSCULOSKELETAL: No cyanosis, or edema. BACK: Nontender without obvious deformity. No CVA tenderness. Results - Labs CBC & Chem 7: 08/28/17 20:20 08/30/17 10:10 Laboratory Results - last 24 hr 08/30/17 08/30/17 08/30/17 10:10 13:19 17:56 POC Glucose 272 H 146 H Beta HCG, Quant [id number] H 08/30/17 08/31/17 20:56 09:24 POC Glucose 275 H 183 H Beta HCG, Quant Microbiology 08/28/17 22:12 Clean Catch Urine Urine Culture - Final >100,000 cfu/mL mixed gram positive darren (probable contaminantes) Assessment and Plan - Assessment (1) Code(s): Z34.90 - Encounter for supervision of normal , unspecified, unspecified trimester Status: Acute (2) DM (diabetes mellitus) Code(s): E11.9 - Type 2 diabetes mellitus without complications Status: Acute (3) UTI (urinary tract infection) Code(s): N39.0 - Urinary tract infection, site not specified Status: Acute - Plan // : 12wks gestation, following w/ Dr. Aponte as outpatient, Dr. Aleman consulted, will follow during hospitalization. = Appreciate gynecology assistance -gynecology is signed off. They want fasting sugars under 100. // DM: Uncontrolled. BS 240's, states BS usually 200-300's despite compliance w/ medications. Real Estate Operations Manager referred pt for admission due to uncontrolled BS, I spoke w/ Dr. Aleman to inquire about goals for glucose levels, recommends fasting BS 100's and non-fasting 120-150. Will check Hgb A1c, start Levemir 10u hs and Sliding scale. Follow up w/ Room Designer as scheduled next . = Patient on 40 of regular insulin 3 times a day at home. Increase his sliding scale. Add twice daily Levemir. Continue to monitor. Consult educator senior clinical. = 08/30. Patient found to have Ritz crackers at bedside. Talked with patient about acceptable snacks and foods. Discussed with nurse. Nurse will provide with list of acceptable diabetic food and snacks. = 08/31. Sugar still elevated. Further increase in insulin. Continue to monitor. //Hypertension. Systolic blood pressures in the 170s. Will add labetalol. //no UTI: = No growth. Discontinue antibiotics. Squamous cells on urinalysis indicating this is a poor sample. Discharge Planning: Still with elevated blood sugars. Discharge home tomorrow morning if sugars are stable.
[2017-08-31] MEDS: Labetalol 100 MG Tablet PO SCH ×2 (15:48→21:00)
[2017-09-01] MEDS: Sod Chloride 0.9% Inj 1,000 ML IV.CONT SCH (06:37)
[2017-09-01] MEDS: Insulin NovoLOG Aspart Correctional Sugar Inj SQ SCH ×7 (09:15→20:56)
[2017-09-01] MEDS: Insulin Detemir Inj 1,000 UNIT/10 ML Vial SQ SCH ×2 (09:32→20:56)
[2017-09-01] MEDS: Labetalol 100 MG Tablet PO SCH ×2 (09:33→20:57)
[2017-09-01] MEDS: Senna/Docusate Sodium 8.6/50 MG Tablet PO SCH ×2 (09:33→20:57)
--- NOTE | 2017-09-01 11:43 | P.PNIM ---
Subjective Interval history: Says she is feeling all right. Denies any chest pain shortness of breath. She did have some spotting today. Gynecology has been contacted by nursing. She denies any abdominal pain. Denies any nausea vomiting. Physical Exam Vital signs: Vital Signs 08/31/17 12:00 08/31/17 16:00 08/31/17 19:59 Temperature 98.2 F 97.9 F 98.2 F Pulse Rate 98 H 104 H 106 H Respiratory Rate 18 18 16 Blood Pressure 146/77 H 148/75 H 148/73 H Pulse Oximetry 99 97 08/31/17 23:51 09/01/17 04:00 09/01/17 07:26 Temperature 98.2 F 97.9 F 98.4 F Pulse Rate 104 H 106 H 104 H Respiratory Rate 16 16 16 Blood Pressure 129/61 157/59 H 144/76 H Pulse Oximetry 99 98 97 Intake & Output 08/31/17 09/01/17 09/01/17 18:59 06:59 18:59 Intake Total 1300 / 1300 1999 Balance 1300 / 1300 1999 Intake: IV 1300 / 1300 1999 NS Inj 1,000 ML @ 100 mls/hr IV 1300 / 1300 1999 .CONT .Q10H BIJAL Rx#:[id number] Other: # Voids 1 5 Date of Last Bowel Movement 08/31/17 08/31/17 # Bowel Movements 0 Narrative: GENERAL: Patient sitting up in bed. Appears comfortable. Alert and oriented 3. Again, no change on exam. SKIN: Warm and dry. HEAD: Normocephalic. EYES: No scleral icterus. No injection or drainage. NECK: Supple, trachea midline. No JVD. CARDIOVASCULAR: Regular rate and rhythm without murmurs, gallops, or rubs. RESPIRATORY: Breath sounds equal bilaterally. No accessory muscle use. GASTROINTESTINAL: Abdomen soft, non-tender, nondistended. MUSCULOSKELETAL: No cyanosis, or edema. BACK: Nontender without obvious deformity. No CVA tenderness. Results - Labs CBC & Chem 7: 08/28/17 20:20 08/30/17 10:10 Laboratory Results - last 24 hr 08/31/17 08/31/17 08/31/17 13:24 18:35 21:04 POC Glucose 165 H 169 H 212 H 09/01/17 09:09 POC Glucose 133 H Assessment and Plan - Assessment (1) Code(s): Z34.90 - Encounter for supervision of normal , unspecified, unspecified trimester Status: Acute (2) DM (diabetes mellitus) Code(s): E11.9 - Type 2 diabetes mellitus without complications Status: Acute (3) UTI (urinary tract infection) Code(s): N39.0 - Urinary tract infection, site not specified Status: Acute - Plan // : 12wks gestation, following w/ Dr. Aponte as outpatient, Dr. Aleman consulted, will follow during hospitalization. = Appreciate gynecology assistance -gynecology is signed off. They want fasting sugars under 100. = Gynecology to evaluate patient again today due to spotting. Contacted by nurse. Appreciate assistance per // DM: Uncontrolled. BS 240's, states BS usually 200-300's despite compliance w/ medications. Disk And Tape Machine Tender referred pt for admission due to uncontrolled BS, I spoke w/ Dr. Aleman to inquire about goals for glucose levels, recommends fasting BS 100's and non-fasting 120-150. Will check Hgb A1c, start Levemir 10u hs and Sliding scale. Follow up w/ Card Doffer as scheduled next . = Patient on 40 of regular insulin 3 times a day at home. Increase his sliding scale. Add twice daily Levemir. Continue to monitor. Consult perinatal educator. = 08/30. Patient found to have Ritz crackers at bedside. Talked with patient about acceptable snacks and foods. Discussed with nurse. Nurse will provide with list of acceptable diabetic food and snacks. = 08/31. Sugar still elevated. Further increase in insulin. Continue to monitor. = Blood sugars in the 130s this morning. Discontinue normal saline IV fluids. Increase Levemir. Pending endocrinology consultation. //Hypertension. Systolic blood pressures in the 170s. Will add labetalol. = Blood pressures improved with labetalol. Continue to monitor. //no UTI: = No growth. Discontinue antibiotics. Squamous cells on urinalysis indicating this is a poor sample. Discharge Planning: Still with elevated blood sugars. Gynecology wants fasting blood sugars under 100.
--- NOTE | 2017-09-01 14:24 | P.CONOB ---
History of Present Illness Primary Care Physician: No Primary Care Physician Chief Complaint: hyperglycemia in History of Present Illness: Ms. Almanzar is a 27-year-old at 12 weeks gestation with PMHx of DM and followed by Dr. Aponte at [facility] who presents to [facility] with uncontrolled blood sugar and UTI. Overnight the patient stated that she had vaginal spotting when she wiped herself. She denies any excessive bleeding, loss of fluid, or contractions. Weeks Gestation:: 12 Review of Systems All other systems reviewed negative except as stated in HPI PMFSH - History History Provided By: Patient - Medical History Medical History: Medical History (Last Updated 08/29/17 @ 10:09 by Jaspreet Nunes III, MD, R2) delivery delivered Diabetes - Surgical History Surgical History: Surgical History (Last Updated 08/29/17 @ 10:09 by Jaspreet Nunes III, MD, R2) H/O oral surgery - Family History Family History: Family History (Last Updated 08/29/17 @ 10:10 by Jaspreet Nunes III, MD, R2) Mother Diabetes Father Diabetes Mother Hypertension Father Hypertension - Tobacco History Second Hand Smoke Exposure: No Tobacco Use In Past 30 Days: No Smoking Status: Former smoker (stopped when she became ) - Alcohol History How Often Do You Have a Drink Containing Alcohol: Never - Substance Use History Substance History: No History of Abuse - Travel History Recent Travel in the [place] Within the Last 8 Weeks: No Recent Travel Out of the Country Within the Last 8 Weeks: No - Immunization History Tetanus Immunization: Unsure Hx Influenza Vaccine This Season: No Medications and Allergies Active Medications: Active Medications Acetaminophen (Tylenol) 650 mg PO Q4H PRN PRN Reason: Temp > 100.4 Last Admin: 08/31/17 18:05 Dose: 650 mg Al Hydroxide/Mg Hydroxide (Milk Of Magnesia Liq) 30 ml PO Q12H PRN PRN Reason: Mild Constipation Bisacodyl (Dulcolax Supp) 10 mg RECTAL DAILY PRN PRN Reason: SEVERE CONSITIPATION Dextrose (D50w Vial) 50 ml IV.PUSH UNSCH PRN PRN Reason: PER HYPOGLYCEMIA PROTOCOL Glucagon (Glucagon Inj) 1 mg OTHER UNSCH PRN PRN Reason: for Hypoglycemia Protocol Insulin Aspart (Novolog Insulin Correctional Sugar Inj) 0 unit SQ ACHS [facility]; Protocol Last Admin: 09/01/17 13:44 Dose: 5 unit Insulin Aspart (Novolog Insulin Correctional Sugar Inj) 5 unit SQ TIDAC [facility] Last Admin: 09/01/17 13:46 Dose: 5 unit Insulin Detemir (Levemir Inj) 30 unit SQ BID [facility] Last Admin: 09/01/17 09:32 Dose: 30 unit Labetalol HCl (Trandate) 100 mg PO BID [facility] Last Admin: 09/01/17 09:33 Dose: 100 mg Lactulose (Lactulose Liq) 30 ml PO DAILY PRN PRN Reason: SEVERE CONSITIPATION Ondansetron HCl (Zofran Odt) 4 mg PO Q6H PRN PRN Reason: NAUSEA OR VOMITING Senna/Docusate Sodium (Sugar-Colace) 1 tab PO BID [facility] Last Admin: 09/01/17 09:33 Dose: 1 tab Sennosides (Senokot) 17.2 mg PO Q12H PRN PRN Reason: Moderate Constipation Allergies Allergy/AdvReac Type Severity Reaction Status Date / Time No Known Allergies Allergy Uncoded 03/20/16 13:12 Home Medications Medication Instructions Recorded Confirmed Type insulin NPH and regular human 40 unit SUB-Q TID 08/28/17 08/28/17 History Exam Vital signs: Vital Signs 08/31/17 16:00 08/31/17 19:59 08/31/17 23:51 Temperature 97.9 F 98.2 F 98.2 F Pulse Rate 104 H 106 H 104 H Respiratory Rate 18 16 16 Blood Pressure 148/75 H 148/73 H 129/61 Pulse Oximetry 97 99 09/01/17 04:00 09/01/17 07:26 09/01/17 11:55 Temperature 97.9 F 98.4 F 98.3 F Pulse Rate 106 H 104 H 108 H Respiratory Rate 16 16 16 Blood Pressure 157/59 H 144/76 H 135/73 Pulse Oximetry 98 97 97 Intake & Output 08/31/17 09/01/17 09/01/17 18:59 06:59 18:59 Intake Total 1300 / 1300 1999 / 1999 500 / 500 Balance 1300 / 1300 1999 / 1999 500 / 500 Intake: IV 1300 / 1300 1999 / 1999 500 / 500 NS Inj 1,000 ML @ 100 mls/hr IV 1300 / 1300 1999 / 1999 500 / 500 .CONT .Q10H [facility] Rx#:[id number] Other: # Voids 1 5 Date of Last Bowel Movement 08/31/17 08/31/17 # Bowel Movements 0 Narrative: GENERAL: Overweight female laying in bed comfortably in NAD SKIN: Warm and dry. HEAD: Normocephalic. EYES: No scleral icterus. No injection or drainage. NECK: Supple, trachea midline. No JVD or lymphadenopathy. CARDIOVASCULAR: Warm and well perfused RESPIRATORY: Normal respiratory effort. GASTROINTESTINAL: Abdomen soft, non-tender, nondistended. Unable to poultry picker heart tones with Doppler. MUSCULOSKELETAL: No cyanosis, or edema. BACK: Nontender without obvious deformity. Results - Labs CBC & Chem 7: 08/28/17 20:20 08/30/17 10:10 Labs: Laboratory Results - last 24 hr 08/31/17 08/31/17 09/01/17 18:35 21:04 09:09 POC Glucose 169 H 212 H 133 H 09/01/17 12:29 POC Glucose 177 H Caprini VTE Risk Assessment Caprini VTE Risk Assessment: No/Low Risk (score <= 1) Caprini Risk Assessment Model: Point Value = 1 Point Value = 2 Point Value = 3 Point Value = 5 Age 41-60 Minor surgery BMI > 25 kg/m2 Swollen legs Varicose veins or History of unexplained or recurrent spontaneous Oral contraceptives or hormone replacement Sepsis (< 1 month) Serious lung disease, including pneumonia (< 1 month) Abnormal pulmonary function Acute myocardial infarction Congestive heart failure (< 1 month) History of inflammatory bowel disease Medical patient at bed rest Age 61-74 Arthroscopic surgery Major open surgery (> 45 min) Laparoscopic surgery (> 45 min) Malignancy Confined to bed (> 72 hours) Immobilizing plaster cast Central venous access Age >= 75 History of VTE Family history of VTE Factor V Leiden Prothrombin [id number] Lupus anticoagulant Anticardiolipin antibodies Elevated serum homocysteine Heparin-induced thrombocytopenia Other congenital or acquired thrombophilia Stroke (< 1 month) Elective arthroplasty Hip, pelvis, or leg fracture Acute spinal cord injury (< 1 month) Prophylaxis Regimen: Total Risk Factor Score Risk Level Prophylaxis Regimen 0-1 Low Early ambulation 2 Moderate Order ONE of the following: *Sequential Compression Device (SCD) *Heparin 5000 units SQ BID 3-4 Higher Order ONE of the following medications: *Heparin 5000 units SQ TID *Enoxaparin/Lovenox 40 mg SQ daily (WT < 150 kg, CrCl > 30 mL/min) *Enoxaparin/Lovenox 30 mg SQ daily (WT < 150 kg, CrCl > 10-29 mL/min) *Enoxaparin/Lovenox 30 mg SQ BID (WT < 150 kg, CrCl > 30 mL/min) AND/OR *Sequential Compression Device (SCD) 5 or more Highest Order ONE of the following medications: *Heparin 5000 units SQ TID (Preferred with Epidurals) *Enoxaparin/Lovenox 40 mg SQ daily (WT < 150 kg, CrCl > 30 mL/min) *Enoxaparin/Lovenox 30 mg SQ daily (WT < 150 kg, CrCl > 10-29 mL/min) *Enoxaparin/Lovenox 30 mg SQ BID (WT < 150 kg, CrCl > 30 mL/min) AND *Sequential Compression Device (SCD) Assessment and Plan - Plan 27 YO female at 12 weeks gestation with chronic DM and Hx pre-eclampsia delivered via C/S presents with uncontrolled blood sugar. NEWS CLIPPING CUTTER asked to evaluate patient today due to vaginal spotting. PLAN: -Unable to locate heat tones with bedside Doppler -Ordering OB ultrasound to assess for active heart beat -If active heart is visualized, nothing further to do from NEWS CLIPPING CUTTER standpoint and will sign off. Dispo: NEWS CLIPPING CUTTER signing off pending result of OB ultrasound DW Dr Reid
--- NOTE | 2017-09-01 21:12 | P.PN ---
Subjective Interval history: F/u Dm Physical Exam Vital signs: Vital Signs 08/31/17 23:51 09/01/17 04:00 09/01/17 07:26 Temperature 98.2 F 97.9 F 98.4 F Pulse Rate 104 H 106 H 104 H Respiratory Rate 16 16 16 Blood Pressure 129/61 157/59 H 144/76 H Pulse Oximetry 99 98 97 09/01/17 11:55 09/01/17 16:00 09/01/17 20:00 Temperature 98.3 F 98.5 F Pulse Rate 108 H 107 H 111 H Respiratory Rate 16 14 17 Blood Pressure 135/73 148/81 H 139/63 Pulse Oximetry 97 99 96 Intake & Output 09/01/17 09/01/17 09/02/17 06:59 18:59 06:59 Intake Total 1999 500 / 500 Balance 1999 500 / 500 Intake: IV 1999 500 / 500 NS Inj 1,000 ML @ 100 mls/hr IV 1999 500 / 500 .CONT .Q10H BIJAL Rx#:[id number] Other: # Voids 5 Date of Last Bowel Movement 08/31/17 # Bowel Movements 0 Narrative: GENERAL: Patient sitting up in bed. Appears comfortable. Alert and oriented 3. SKIN: Warm and dry. CARDIOVASCULAR: Regular rate and rhythm without murmurs, gallops, or rubs. RESPIRATORY: Breath sounds equal bilaterally. No accessory muscle use. GASTROINTESTINAL: Abdomen soft, non-tender, nondistended. MUSCULOSKELETAL: No cyanosis, or edema. BACK: Nontender without obvious deformity. No CVA tenderness. Results - Labs CBC & Chem 7: 08/28/17 20:20 08/30/17 10:10 Laboratory Results - last 24 hr 08/31/17 09/01/17 09/01/17 21:04 09:09 12:29 POC Glucose 212 H 133 H 177 H 09/01/17 09/01/17 18:15 20:45 POC Glucose 189 H 153 H - Procedures none Assessment and Plan - Assessment (1) Code(s): Z34.90 - Encounter for supervision of normal , unspecified, unspecified trimester Status: Acute (2) DM (diabetes mellitus) Code(s): E11.9 - Type 2 diabetes mellitus without complications Status: Acute (3) UTI (urinary tract infection) Code(s): N39.0 - Urinary tract infection, site not specified Status: Acute - Plan // : 12wks gestation, following w/ Dr. Aponte as outpatient, Dr. Aleman consulted, will follow during hospitalization. = Appreciate gynecology assistance -gynecology signed off. They want fasting sugars under 100. = Gynecology to evaluate patient again due to spotting. Will check FHT // DM: Uncontrolled. BS 240's, states BS usually 200-300's despite compliance w/ medications. Drier Take Off Tender referred pt for admission due to uncontrolled BS, I spoke w/ Dr. Aleman to inquire about goals for glucose levels, recommends fasting BS 100's and non-fasting 120-150. Will check Hgb A1c, start Levemir 10u hs and Sliding scale. Follow up w/ Digital Ad Trafficker as scheduled next . = Patient on 40 of regular insulin 3 times a day at home. Increase sliding scale. Add twice daily Levemir. Continue to monitor. Consult community health educator. = 08/30. Patient found to have Ritz crackers at bedside. Talked with patient about acceptable snacks and foods. Discussed with nurse. Nurse will provide with list of acceptable diabetic food and snacks. = 08/31. Sugar still elevated. Further increase in insulin. Continue to monitor. = Blood sugars in the 130s this morning. Discontinue normal saline IV fluids. Increase Levemir. Pending endocrinology consultation. //Hypertension. Systolic blood pressures in the 170s. Will add labetalol. = Blood pressures improved with labetalol. Continue to monitor.
--- NOTE | 2017-09-01 21:15 | P.CONEN ---
History of Present Illness Consult date: 09/01/17 Consult reason: other (Uncontrolled diabetes in ) History of Present Illness: This is a 27 years old lady diagnosed with type 2 diabetes at the age of 9 presenting with symptomatic hyperglycemia and severe acanthosis nigricans. Nae has a positive family history of diabetes in her mother and her only 5 years older brother who has already had a coupe of toe amputations. She recalls a HBA1c of over 9 % at diagnosis and also reports a history of personal suboptimal glycemic control in herself. Otherwise she was referred to the ER for admission and control of her diabetes seen she is also 12 weeks gestational. She is and her last was complicated by pre- eclampsia per chart review. The patient reports adherence to a healthy diet to be her main connie in addition to her difficulty getting insurance and getting one which is accepted by mixing machine tender cork rod in the area. She has an appointment to establish with an Wardrobe Image Consultant in the area in 3 days but does not know the name. She is not versed in carbohydrate counting as yet. Review of Systems her review of systems apart from some spotting last night is negative. PMFSH - History History Provided By: Patient - Medical History Medical History: Medical History (Last Updated 08/29/17 @ 10:09 by Jaspreet Nunes III, MD, R2) delivery delivered Diabetes - Surgical History Surgical History: Surgical History (Last Updated 08/29/17 @ 10:09 by Jaspreet Nunes III, MD, R2) H/O oral surgery - Family History Family History: Family History (Last Updated 08/29/17 @ 10:10 by Jaspreet Nunes III, MD, R2) Mother Diabetes Father Diabetes Mother Hypertension Father Hypertension - Tobacco History Second Hand Smoke Exposure: No Tobacco Use In Past 30 Days: No Smoking Status: Former smoker (stopped when she became ) - Alcohol History How Often Do You Have a Drink Containing Alcohol: Never - Substance Use History Substance History: No History of Abuse - Travel History Recent Travel in the [place] Within the Last 8 Weeks: No Recent Travel Out of the Country Within the Last 8 Weeks: No - Immunization History Tetanus Immunization: Unsure Hx Influenza Vaccine This Season: No Medications and Allergies Active Medications: Active Medications Acetaminophen (Tylenol) 650 mg PO Q4H PRN PRN Reason: Temp > 100.4 Last Admin: 08/31/17 18:05 Dose: 650 mg Al Hydroxide/Mg Hydroxide (Milk Of Magnesia Liq) 30 ml PO Q12H PRN PRN Reason: Mild Constipation Bisacodyl (Dulcolax Supp) 10 mg RECTAL DAILY PRN PRN Reason: SEVERE CONSITIPATION Dextrose (D50w Vial) 50 ml IV.PUSH UNSCH PRN PRN Reason: PER HYPOGLYCEMIA PROTOCOL Glucagon (Glucagon Inj) 1 mg OTHER UNSCH PRN PRN Reason: for Hypoglycemia Protocol Insulin Aspart (Novolog Insulin Correctional Sugar Inj) 0 unit SQ ACHS [facility]; Protocol Last Admin: 09/01/17 20:56 Dose: 5 unit Insulin Aspart (Novolog Insulin Correctional Sugar Inj) 5 unit SQ TIDAC [facility] Last Admin: 09/01/17 18:50 Dose: 5 unit Insulin Detemir (Levemir Inj) 30 unit SQ BID [facility] Last Admin: 09/01/17 20:56 Dose: 30 unit Labetalol HCl (Trandate) 100 mg PO BID [facility] Last Admin: 09/01/17 20:57 Dose: 100 mg Lactulose (Lactulose Liq) 30 ml PO DAILY PRN PRN Reason: SEVERE CONSITIPATION Ondansetron HCl (Zofran Odt) 4 mg PO Q6H PRN PRN Reason: NAUSEA OR VOMITING Senna/Docusate Sodium (Sugar-Colace) 1 tab PO BID [facility] Last Admin: 09/01/17 20:57 Dose: 1 tab Sennosides (Senokot) 17.2 mg PO Q12H PRN PRN Reason: Moderate Constipation Allergies Allergy/AdvReac Type Severity Reaction Status Date / Time No Known Allergies Allergy Uncoded 03/20/16 13:12 Home Medications Medication Instructions Recorded Confirmed Type insulin NPH and regular human 40 unit SUB-Q TID 08/28/17 08/28/17 History Exam Vital signs: Vital Signs 08/31/17 23:51 09/01/17 04:00 09/01/17 07:26 Temperature 98.2 F 97.9 F 98.4 F Pulse Rate 104 H 106 H 104 H Respiratory Rate 16 16 16 Blood Pressure 129/61 157/59 H 144/76 H Pulse Oximetry 99 98 97 09/01/17 11:55 09/01/17 16:00 Temperature 98.3 F 98.5 F Pulse Rate 108 H 107 H Respiratory Rate 16 14 Blood Pressure 135/73 148/81 H Pulse Oximetry 97 99 Intake & Output 09/01/17 09/01/17 09/02/17 06:59 18:59 06:59 Intake Total 1999 500 / 500 Balance 1999 500 / 500 Intake: IV 1999 500 / 500 NS Inj 1,000 ML @ 100 mls/hr IV 1999 500 / 500 .CONT .Q10H BIJAL Rx#:[id number] Other: # Voids 5 Date of Last Bowel Movement 08/31/17 # Bowel Movements 0 - Constitutional no acute distress, obese, cooperative - Routine HEENT Exam Head: Present: normocephalic, atraumatic Eye: Present: EOMI - Routine Neck Exam Present: supple, full ROM - Detailed Neck Exam: Thyroids Thyroid: Present: normal - Routine Respiratory Exam Present: CTA bilaterally - Routine Cardiovascular Exam Present: RRR, S1, S2 - Routine Abdominal Exam Present: soft, normoactive bowel sounds - Routine Extremities Exam Present: full ROM - Routine Skin Exam Comments: Acanthosis nigricans at the base of the neck albeit not severe - Routine Neurological Exam Present: alert, oriented X3, CN II-XII intact, normal reflexes, moving all extremities, vision grossly intact Results - Labs Result Diagrams: 08/28/17 20:20 08/30/17 10:10 Abnormal lab results 08/31/17 09/01/17 09/01/17 Range/Units 21:04 09:09 12:29 POC Glucose 212 H 133 H 177 H (68-110) mg/dl 09/01/17 Range/Units 18:15 POC Glucose 189 H (68-110) mg/dl Assessment and Plan - Assessment (1) DM (diabetes mellitus) Code(s): E11.9 - Type 2 diabetes mellitus without complications Status: Chronic Qualifiers: Diabetes mellitus type: type 2 Diabetes mellitus prison insulin use: with exterminator use Plan: I have discussed ehr treatment targets and goals during which are fasting and premeal readings of less than 90 mg/dl and 1 hour readings recommended to be no more than 120 mg/dl. Recommend a consistent carbohydrate intake for now of 60 grams breakfast and lunch and 75 grams at dinner time with a NovoLog dose of 12 units before breakfast and lunch and 15 units before dinner plus a sliding scale of 2 units per each 30 mg/dl over 100 mg/dl for now. Also discussed and recommend non carb snacks in between meals and at bedtime as needed. Recommend training into carbohydrate counting as well. Will take the liberty to write the orders. Thank you for allowing to participate in the medical management of this nice lady. (2) Code(s): Z34.90 - Encounter for supervision of normal , unspecified, unspecified trimester Status: Acute
[2017-09-02] MEDS: Labetalol 100 MG Tablet PO SCH (10:08)
[2017-09-02] MEDS: Senna/Docusate Sodium 8.6/50 MG Tablet PO SCH (10:08)
[2017-09-02] MEDS: Insulin Detemir Inj 1,000 UNIT/10 ML Vial SQ SCH (10:10)
[2017-09-02] MEDS: Insulin NovoLOG Aspart Correctional Sugar Inj SQ SCH ×2 (10:10→13:38)
--- NOTE | 2017-09-02 10:19 | P.PN ---
Subjective Interval history: Follow-up diabetes mellitus Physical Exam Vital signs: Vital Signs 09/01/17 11:55 09/01/17 16:00 09/01/17 20:00 Temperature 98.3 F 98.5 F Pulse Rate 108 H 107 H 111 H Respiratory Rate 16 14 17 Blood Pressure 135/73 148/81 H 139/63 Pulse Oximetry 97 99 96 09/02/17 00:00 09/02/17 04:00 Temperature 98.8 F 98.5 F Pulse Rate 101 H 104 H Respiratory Rate 17 17 Blood Pressure 137/65 130/59 L Pulse Oximetry 97 96 Intake & Output 09/01/17 09/02/17 09/02/17 18:59 06:59 18:59 Intake Total 500 / 500 0 / 0 Balance 500 / 500 0 / 0 Intake: IV 500 / 500 0 / 0 NS Inj 1,000 ML @ 100 mls/hr IV 500 / 500 .CONT .Q10H BIJAL Rx#:[id number] Other: # Voids 3 Date of Last Bowel Movement 09/01/17 Results - Labs CBC & Chem 7: 08/28/17 20:20 08/30/17 10:10 Laboratory Results - last 24 hr 09/01/17 09/01/17 09/01/17 12:29 18:15 20:45 POC Glucose 177 H 189 H 153 H 09/02/17 08:21 POC Glucose 136 H - Procedures none Assessment and Plan - Assessment (1) Code(s): Z34.90 - Encounter for supervision of normal , unspecified, unspecified trimester Status: Acute (2) DM (diabetes mellitus) Code(s): E11.9 - Type 2 diabetes mellitus without complications Status: Chronic (3) UTI (urinary tract infection) Code(s): N39.0 - Urinary tract infection, site not specified Status: Acute - Plan // : 12wks gestation, following w/ Dr. Aponte as outpatient, Dr. Aleman consulted, will follow during hospitalization. = Appreciate gynecology assistance -gynecology signed off. They want fasting sugars under 100. = Gynecology to evaluate patient again due to spotting. Will check FHT // DM: Uncontrolled. BS 240's, states BS usually 200-300's despite compliance w/ medications. Desktop Analyst referred pt for admission due to uncontrolled BS, I spoke w/ Dr. Aleman to inquire about goals for glucose levels, recommends fasting BS 100's and non-fasting 120-150. Will check Hgb A1c, start Levemir 10u hs and Sliding scale. Follow up w/ Industrial Electrician Journeyman as scheduled next . = Patient on 40 of regular insulin 3 times a day at home. Increase sliding scale. Add twice daily Levemir. Continue to monitor. Consult transformer coil winder. = 08/30. Patient found to have Ritz crackers at bedside. Talked with patient about acceptable snacks and foods. Discussed with nurse. Nurse will provide with list of acceptable diabetic food and snacks. = 08/31. Sugar still elevated. Further increase in insulin. Continue to monitor. = Blood sugars in the 130s this morning. Discontinue normal saline IV fluids. Increase Levemir. Pending endocrinology consultation. -Endocrinology has made changes in the insulin dosing preprandial NovoLog to 12 units before breakfast and lunch and 15 units before dinner. Continue long- acting Levemir //Hypertension. Systolic blood pressures in the 170s. Will add labetalol. = Blood pressures improved with labetalol. Continue to monitor. (2) DM (diabetes mellitus) Qualifiers: Diabetes mellitus type: type 2 Diabetes mellitus ad terminal makeup operator insulin use: with ad terminal makeup operator use
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
--- NOTE | 2017-09-02 15:51 | P.DS ---
Date of admission: 08/28/17 21:15 Primary care physician: No Primary Care Physician Brief History from admission: Ms. Almanzar is a 27-year-old at 12 weeks gestation with PMHx of DM and followed by Dr. Aponte at [facility] who [place] [facility] [place] uncontrolled blood sugar and UTI. Overnight the patient stated that she had vaginal spotting when she wiped herself. She denies any excessive bleeding, loss of fluid, or contractions. DS: Diagnosis - Discharge Diagnosis (1) Status: Acute (2) DM (diabetes mellitus) Status: Chronic DS: Medications - Discharge Medications Prescriptions: insulin aspart U-100 [Novolog U-100 Insulin aspart] 12 units SUB-Q BID@0800, 1201 30 Days #10 ml insulin aspart U-100 [Novolog U-100 Insulin aspart] 15 units SUB-Q DAILY@1700 # 10 ml insulin detemir U-100 [Levemir U-100 Insulin] 30 unit SUB-Q BID #20 ml labetalol 100 mg PO BID #60 tab DS: Summary Hospital Course: // : 12wks gestation, following w/ Dr. Aponte as outpatient, Dr. Aleman consulted, will follow during hospitalization. We consulted CELLOPHANE BAG MACHINE OPERATOR secondary to spotting which has resolved. Repeat OB ultrasound showed viable fetus. // DM: Uncontrolled. Improving. Endocrinology recommended preprandial NovoLog to 12 units before breakfast and lunch and 15 units before dinner. Continue long-acting Levemir 30 units twice a day. Diabetic education. Follow- up A1c. Patient wants to go home today will see her network design architect tomorrow morning. //Hypertension. Systolic blood pressures in the 170s. Improved continue labetalol. - Time Spent with Patient Total time spent providing and/or coordinating discharge services: - Quality: VTE Deep Vein Thrombosis/Pulmonary Embolism Present on Admission: No Exam Vital signs: Vital Signs 09/01/17 16:00 09/01/17 20:00 09/02/17 00:00 Temperature 98.5 F 98.8 F Pulse Rate 107 H 111 H 101 H Respiratory Rate 14 17 17 Blood Pressure 148/81 H 139/63 137/65 Pulse Oximetry 99 96 97 09/02/17 04:00 09/02/17 12:00 Temperature 98.5 F 98.7 F Pulse Rate 104 H 104 H Respiratory Rate 17 16 Blood Pressure 130/59 L 144/76 H Pulse Oximetry 96 97 Intake & Output 09/01/17 09/02/17 09/02/17 18:59 06:59 18:59 Intake Total 500 / 500 0 / 0 Balance 500 / 500 0 / 0 Intake: IV 500 / 500 0 / 0 NS Inj 1,000 ML @ 100 mls/hr IV 500 / 500 .CONT .Q10H BIJAL Rx#:[id number] Other: # Voids 3 Date of Last Bowel Movement 09/01/17 Narrative: GENERAL: This is an obese, well-developed patient, in no apparent distress. CARDIOVASCULAR: Regular rate and rhythm without murmurs, gallops, or rubs. RESPIRATORY: Clear to auscultation. Breath sounds equal bilaterally. No wheezes , rales, or rhonchi. GASTROINTESTINAL: Abdomen soft, non-tender, nondistended. Normal active bowel sounds MUSCULOSKELETAL: Extremities without clubbing, cyanosis, or edema. NEURO: Alert & Oriented x4 to person, place, time, situation. Moves all ext x4 Results Procedures completed during hospitalization: none Labs on day of discharge: Labs from last 24 hours 09/02/17 09/02/17 09/02/17 12:12 10:10 08:21 POC Glucose 175 H 136 H Hemoglobin A1c Fructosamine Tumor Marker HCG Cancelled Beta HCG, Quant [id number] H 09/02/17 09/02/17 09/01/17 07:02 07:02 20:45 POC Glucose 153 H Hemoglobin A1c Pending Fructosamine Pending Tumor Marker HCG Beta HCG, Quant 09/01/17 18:15 POC Glucose 189 H Hemoglobin A1c Fructosamine Tumor Marker HCG Beta HCG, Quant - Impressions ITS Impressions Pelvic/Transvag US 09/02/17 08:36 CONCLUSION: 1. Viable IUP of 12 weeks and 1 day and gestational age. 2. Right ovary not visualized. Discharge Plan - Discharge Disposition Patient Disposition: 01 Discharge Home - Discharge Condition Condition: Stable - Discharge Order Discharge Orders: Discharge Order (Routine); Ordered 09/02/17 Ordered By: David Damon - Physicians Team Primary Care Provider: Primary Care Christie,Stefani Attending Provider: David Damon Other Providers: Mohamud Aleman MD ; Kobi Alexander MD
[2017-09-02 17:01] LABS: Hemoglobin A1c 11.8 % (4.3-6.0)
== END 2017-09-02 17:45 | disposition home or self-care (01) ==
LOC: NEPD 14:32 → NEDA 14:32 → NEPFCDU 14:32
PROVIDERS: ADMIT Internal Medicine; ATTEND Internal Medicine